=== PATIENT | female | born 1950 | race African-American/Black ===

== ENCOUNTER 2017-11-02 12:47 | Observation (INO) | payer OTHER ==
[2017-11-02] MEDS ORDERED: ONDANSETRON 4 MG (ODT) TAB PO PRN (14:19)
[2017-11-02] MEDS ORDERED: ACETAMINOPHEN 325 MG TABLET PO PRN (14:19)
[2017-11-02] MEDS ORDERED: DIPHENHYDRAMINE 25 MG TAB/CAP PO PRN (14:19)
[2017-11-02] MEDS ORDERED: POLYETHYL GLY 3350 17 GM/DOSE PO PRN (14:19)
[2017-11-02] MEDS ORDERED: LOPERAMIDE HCL 2 MG CAPSULE PO PRN (14:19)
[2017-11-02] MEDS ORDERED: ONDANSETRON 4 MG/2 ML VIAL IV PRN (14:19)
[2017-11-02] MEDS ORDERED: ALBUTEROL 2.5 MG/3 ML NEB SOL IH PRN (14:20)
[2017-11-02 14:49] VITALS: BMI 33.3
[2017-11-02] MEDS ORDERED: NACHLORIDE 0.45% 1,000 ML IV SCH ×2 (15:00→18:00)
[2017-11-02 15:01] LABS: Absolute Lymphocytes (CBC) 3.2 K/uL (0.7-4.9); Absolute Monocytes 0.9 K/uL (0.1-1.3); Absolute Neutrophil 7.6 K/uL (1.8-8.0); Basophils % 0.3 % (0-1.3); Eosinophils % 0.1 % (0-4.4); Hematocrit 39.5 % (36.0-45.0); Lymphocytes % 27.4 % (15.3-44.8); MCH 27.6 pg (27.0-35.0); MPV 8.5 fL (7.6-11.3); Monocytes % 7.7 % (3.3-12.3); RBC Red Blood Cell Count 4.64 M/uL (3.86-4.86)
[2017-11-02 15:13] LABS: Protime INR 1.04
[2017-11-02] MEDS ORDERED: D50W 25 GM/50 ML SYRINGE IV PRN (15:37)
[2017-11-02] MEDS ORDERED: GLUCAGON 1 MG/VIAL IM PRN (15:37)
--- NOTE | 2017-11-02 15:57 | RAD REPORT ---
EXAM DESCRIPTION: Khurram Monroe (2 Views)11/02/2017 3:01 pm CLINICAL HISTORY: Abdominal pain COMPARISON: 2011 FINDINGS: The lungs appear clear of acute infiltrate. The heart is normal size IMPRESSION: No acute abnormalities displayed
[2017-11-02] MEDS ORDERED: PNEUMOCOCCAL VACCINE 0.5 ML IMVAC ONE (16:00)
--- NOTE | 2017-11-02 16:16 | EKG ---
Test Date: 2017-11-02 Test Time: 15:05:48 Color Finisher: FRIDA MEASUREMENT RESULTS: Intervals: Rate: 65 TX: 154 QRSD: 84 QT: 356 QTc: 370 [place]: P: 49 TX: 154 QRS: -29 T: 36 INTERPRETIVE STATEMENTS: Normal sinus rhythm Possible Anterior infarct, age undetermined Abnormal ECG Compared to ECG 02/26/2012 14:59:01 Myocardial infarct finding now present Left-axis deviation no longer present Electronically Signed On 11-02-17 16:15:43 CDT by Brandin Mcleod
[2017-11-02 16:20] LABS: Potassium 4.8 mEq/L (3.6-5.0)
[2017-11-02 16:25] LABS: Albumin 4.3 g/dL (3.2-5.5); Bilirubin Direct 0.1 mg/dL (0-0.2); Bilirubin Total 0.6 mg/dL (0.3-1.2); Magnesium 1.9 mg/dL (1.8-2.5); Protein, Total 9.1 g/dL (6.0-8.3)
[2017-11-02] MEDS: INSULIN -REGULAR HUMAN 50 UNIT/0.5 ML ML SQ SCH ×2 (16:30→21:00)
[2017-11-02 16:36] LABS: Thyroid Stimulating Hormone 0.86 uIU/mL (0.34-5.60)
--- NOTE | 2017-11-02 18:08 | P.HP ---
Certification for Inpatient Patient admitted to: Observation With expected LOS: <2 Midnights Practitioner: I am a practitioner with admitting privileges, knowledge of patient current condition, hospital course, and medical plan of care. Services: Services provided to patient in accordance with Admission requirements found in Title 42 Section 412.3 of the Code of Federal Regulations Patient History Date of Service: 11/02/17 Reason for admission: EPIG PAIN AND VOMITING BLOOD. History of Present Illness: MS FUENTES WALKS IN THE OFFICE WITH ABDOMEN PAIN AND VOMITING BRIGHT BLOOD. UPON FURTHER INTERROGATION SHE IS FOUND HAD PROFUSE BLEEDING FROM MOUTH AND THAT HAS NOW REDUCED. SHE HAS DENTAL PAIN ON RIGHT SIDE. Allergies No Known Allergies Allergy (Verified 11/02/17 14:50) Home Medications: Clonidine HCl [Catapres] 0.1 mg PO BID 11/02/17 Esomeprazole Mag Trihydrate [Nexium] 40 mg PO DAILY 11/02/17 Glimepiride 1 tab PO DAILY 11/02/17 Lisinopril 40 mg PO DAILY 11/02/17 Meclizine HCl 25 mg PO TID PRN 11/02/17 Metformin HCl [Glucophage*] 1 tab PO BID 11/02/17 Potassium Chloride 10 meq PO DAILY 11/02/17 Pregabalin [Lyrica] 1 tab PO BID 11/02/17 Ropinirole HCl 1 mg PO BID 11/02/17 - Past Medical/Surgical History Has patient received pneumonia vaccine in the past: No Diabetic: Yes -: NIDDM 2 -: GLAUCOMA - R EYE -: HTN -: R-EYE BLINDNESS -: R-EYE SURGERY (Attempted to repair glaucoma) -: Hysterectomy - Family History Mother -: Stroke - Social History Smoking Status: Former smoker Alcohol use: No CD- Drugs: No Caffeine use: Yes Place of Residence: Home Review of Systems 10-point ROS is otherwise unremarkable Physical Examination - Vital Signs Temperature: 98.4 F Blood Pressure: 163/88 Pulse: 81 Respirations: 18 Pulse Ox (%): 99 - Physical Exam General: Alert, Acute distress HEENT: Atraumatic, PERRLA, Mucous membr. moist/pink, Other (POOR DENTAL HYGIENE , ACUTE BLEED FROM GUMS ON RIGHT SIDE.), EOMI, Sclerae nonicteric Neck: Supple, 2+ carotid pulse no bruit, No LAD, Without JVD or thyroid abnormality Respiratory: Clear to auscultation bilaterally, Normal air movement Cardiovascular: Regular rate/rhythm, Normal S1 S2 Gastrointestinal: Normal bowel sounds, No tenderness Musculoskeletal: No tenderness Integumentary: No rashes Neurological: Normal gait, Normal speech, Normal strength at 5/5 x4 extr, Normal tone, Normal affect Lymphatics: No axilla or inguinal lymphadenopathy - Studies Laboratory Data (last 24 hrs) 11/02/17 14:43: PT 12.3, INR 1.04, APTT 25.4 11/02/17 14:43: Sodium 151 H, Potassium 4.8, BUN 12, Creatinine 0.80, Glucose 134 H, Phosphorus 4.0, Magnesium 1.9, Total Bilirubin 0.6, AST 30, ALT 33, Alkaline Phosphatase 91 11/02/17 14:43: WBC 11.7 H, Hgb 12.8, Hct 39.5, Plt Count 291 Assessment and Plan - Problems (Diagnosis) (1) GI bleed Current Visit: Yes Status: Acute Plan: FROM GUMS PROFUSE BLEEDING MAY HAVE STOPPED WE DON'T HAVE DENTIST ON STAFF CONSULT DR. ALBRIGHT LATER FU WITH DENTIST WHO WILL TAKE MEDICAID. (2) Hypernatremia Current Visit: Yes Status: Acute Plan: IV HALF NS THIS SHOULD CORRECT BY AM. - Advance Directives Does patient have a Living Will: No Does patient have a Durable POA for Healthcare: No
[2017-11-02 18:14] LABS: A1c Component 0.61 mg/dL; Hemoglobin A1c 6.3 % (4-6.0)
[2017-11-02 19:13] LABS: Urine Appearance CLOUDY; Urine Bilirubin NEGATIVE (NEG); Urine Blood 2+ (NEG); Urine Color YELLOW; Urine Glucose NEGATIVE (NEG); Urine Protein TRACE (NEG); Urine Specific Gravity <=1.005 (1.005-1.030); Urine Urobilinogen 0.2 mg/dL (0.2-1.0); Urine pH 7.5 (5.0-7.0)
[2017-11-02] MEDS: LEVALBUTEROL 1.25 MG/3 ML NEB IH SCH (19:25)
[2017-11-02] MEDS: IPRATROPIUM BROM 0.5MG/2.5ML IH SCH (19:25)
[2017-11-02 19:44] LABS: UR CREAT 31.4 mg/dL; UR MICROALBUMIN 12.2 mg/dL (< 1.9); Urine Microscopic Reflex NO UMIC
[2017-11-02 19:45] LABS: Urine Bacteria >50 /HPF (<20); Urine Culture Reflex Order NOT NEEDED
[2017-11-02] MEDS: PANTOPRAZOLE 40 MG INJ IV SCH (21:27)
[2017-11-02] MEDS: SODIUM CHLORIDE 0.9% 10ML INJ IV SCH (21:28)
[2017-11-03] MEDS: LEVALBUTEROL 1.25 MG/3 ML NEB IH SCH ×2 (01:47→07:47)
[2017-11-03] MEDS: IPRATROPIUM BROM 0.5MG/2.5ML IH SCH ×2 (01:47→07:47)
[2017-11-03 04:46] LABS: Absolute Monocytes 0.9 K/uL (0.1-1.3); Absolute Neutrophil 5.8 K/uL (1.8-8.0); Basophils % 0.2 % (0-1.3); Eosinophils % 0.4 % (0-4.4); Hematocrit 35.7 % (36.0-45.0); Lymphocytes % 30.7 % (15.3-44.8); MCH 28.5 pg (27.0-35.0); MCV 84.2 fL (80-100); MPV 8.6 fL (7.6-11.3); Monocytes % 9.5 % (3.3-12.3); RBC Red Blood Cell Count 4.24 M/uL (3.86-4.86)
[2017-11-03 04:51] LABS: BUN Blood Urea Nitrogen 10 mg/dL (6-20); Bicarbonate 30 mEq/L (21-31); Glucose Level 157 mg/dL (65-120); Magnesium 1.8 mg/dL (1.8-2.5); Potassium 4.3 mEq/L (3.6-5.0); Sodium Level 136 mEq/L (135-145)
[2017-11-03] MEDS: INSULIN -REGULAR HUMAN 50 UNIT/0.5 ML ML SQ SCH (07:30)
[2017-11-03] MEDS: SODIUM CHLORIDE 0.9% 10ML INJ IV SCH (08:21)
[2017-11-03] MEDS: PANTOPRAZOLE 40 MG INJ IV SCH (08:21)
[2017-11-03 13:06] VITALS: BP 190/84; TEMP 98.5
--- NOTE | 2017-11-03 21:22 | P.DS ---
Admission Date: 11/02/17 Discharge Date: 11/03/17 Disposition: ROUTINE DISCHARGE Discharge Condition: FAIR Reason for Admission: EPIG PAIN AND VOMITING BLOOD. - Problems (1) GI bleed Onset Date: 11/03/17 Status: Acute (2) Hypernatremia Onset Date: 11/03/17 Status: Acute Brief History of Present Illness: MS FUENTES WALKS IN THE OFFICE WITH ABDOMEN PAIN AND VOMITING BRIGHT BLOOD. UPON FURTHER INTERROGATION SHE IS FOUND HAD PROFUSE BLEEDING FROM MOUTH AND THAT HAS NOW REDUCED. SHE HAS DENTAL PAIN ON RIGHT SIDE. MS FUENTES HAS DENTAL PAIN AND GUM BLEEDING. SHE HAS NOT BEEN TO A DENTIST FOR A LONG TIME. I GAVE HER CLINDAMYCIN ORALLY AND REFERRED HER TO DENTIST WHO TAKES MEDICAID. Vital Signs/Physical Exam: Temp Pulse Resp BP Pulse Ox 98.5 F 86 16 190/84 H 97 11/03/17 12:00 11/03/17 12:00 11/03/17 12:00 11/03/17 12:00 11/03/17 12:00 Laboratory Data at Discharge: WBC 9.7 K/uL (4.3-10.9) D 11/03/17 03:50 Hgb 12.1 g/dL (12.0-15.0) 11/03/17 03:50 Hct 35.7 % (36.0-45.0) L 11/03/17 03:50 Plt Count 245 K/uL (152-406) 11/03/17 03:50 PT 12.3 SECONDS (9.5-12.5) 11/02/17 14:43 INR 1.04 11/02/17 14:43 APTT 25.4 SECONDS (24.3-36.9) 11/02/17 14:43 Sodium 136 mEq/L (135-145) 11/03/17 03:50 Potassium 4.3 mEq/L (3.6-5.0) 11/03/17 03:50 BUN 10 mg/dL (6-20) 11/03/17 03:50 Creatinine 0.75 mg/dL (0.44-1.00) 11/03/17 03:50 Glucose 157 mg/dL (65-120) H 11/03/17 03:50 Phosphorus 4.0 mg/dL (2.5-4.3) 11/02/17 14:43 Magnesium 1.8 mg/dL (1.8-2.5) 11/03/17 03:50 Total Bilirubin 0.6 mg/dL (0.3-1.2) 11/02/17 14:43 AST 30 IU/L (10-42) 11/02/17 14:43 ALT 33 IU/L (10-60) 11/02/17 14:43 Alkaline Phosphatase 91 IU/L (42-121) 11/02/17 14:43 Home Medications: Clonidine HCl [Catapres] 0.1 mg PO BID 11/02/17 Esomeprazole Mag Trihydrate [Nexium] 40 mg PO DAILY 11/02/17 Glimepiride 1 tab PO DAILY 11/02/17 Lisinopril 40 mg PO DAILY 11/02/17 Meclizine HCl 25 mg PO TID PRN 11/02/17 Metformin HCl [Glucophage*] 1 tab PO BID 11/02/17 Potassium Chloride 10 meq PO DAILY 11/02/17 Pregabalin [Lyrica] 1 tab PO BID 11/02/17 Ropinirole HCl 1 mg PO BID 11/02/17 Clindamycin HCl 300 mg PO TID #15 capsule 11/03/17 New Medications: Clindamycin HCl 300 mg PO TID #15 capsule
--- NOTE | 2017-11-04 07:56 | P.CNS ---
Date of Consult: 11/02/17 I am called by the admin secretary on the unit for consultation regarding active mouth bleeding. I went to the patient's bedside at approximately 1815. At that time, the patient was resting comfortably in bed and in no acute distress. The was no bloody towels, tissues, or cups with blood or blood-tinged saliva noted. The patient's lips, tongue and oropharynx were clear from any blood or bloody secretions at that time. I had a prior commitment and was unable to perform a full H&P at the time. I did not see an acute need for intervention. She can follow up with me or with a dentist/oral surgeon as needed.
== END 2017-11-03 14:17 | disposition home or self-care (01) ==
LOC: 4TH 13:51
PROVIDERS: ADMIT Internal Medicine; ATTEND Internal Medicine
DX: K06.8 Other specified disorders of gingiva and edentulous alveolar ridge (principal); E87.0 Hyperosmolality and hypernatremia; E11.9 Type 2 diabetes mellitus without complications; I10 Essential (primary) hypertension
CPT/HCPCS: 36415 ×2; 71046; 80048 ×2; 80076; 82043; 82306; 82570; 82607; 82962 ×4; 83036; 83735 ×2; 84100; 84443; 85025 ×2; 85610; 85730; 87086; 87088; 93005; 94640; C9113 ×2; G0378; G0379; 81003; 81015